=== PATIENT | male | born 1965 | race Caucasian/White ===

== ENCOUNTER 2016-05-03 08:51 | Emergency (ER) | payer OTHER ==
[~2016-05-03] VITALS: Ht 185.4 cm; Wt 79.5 kg
[2016-05-03 08:53] VITALS: TEMP 98
[2016-05-03] MEDS ORDERED: HUMALOG100 U/ML SQ (09:00)
[2016-05-03] MEDS ORDERED: LEVEMIR FLEX100 U/ML SQ (09:00)
[2016-05-03] MEDS ORDERED: PRINIVIL10 MG PO (09:00)
[2016-05-03 09:30] LABS: BASO # 0.1 (0.0-0.2); BASO % 1.2 % (0.0-2.0); EOS % 0.2 % (0-4.0); GRAN # 3.2 (1.4-6.5); GRAN % 74.8 % (42.2-75.2); LYMPH # 0.4 (1.2-3.4); LYMPH % 8.2 % (20.0-51.0); MEAN CELL VOLUME 99 fl (80.0-100.0); MEAN CORPUSCULAR HGB CONC 35 g/dl (33.0-37.0); MEAN PLATELET VOLUME 9.4 fl (7.4-10.4); MONO # 0.6 (0.1-0.6); MONO % 14.9 % (1.7-9.3); PLATELET COUNT 114 K/mm3 (130-400); RED BLOOD COUNT 3.46 M/mm3 (4.20-5.60); REDCELL DISTRIBUTION WIDTH-CV 12.8 % (11.5-14.5); WHITE BLOOD COUNT 4.3 K/mm3 (4.8-10.8)
[2016-05-03 09:32] LABS: HEMATOCRIT 34.2 % (42.0-52.0); HEMOGLOBIN 11.9 g/dl (13.5-18.0); MEAN CORPUSCULAR HEMOGLOBIN 34 pg (27.0-31.0)
[2016-05-03 09:37] LABS: ADJUSTED CALCIUM 8.9 mg/dL (8.4-10.2); ALANINE AMINOTRANSFERASE 124 U/L (21-72); ALBUMIN 4.3 gm/dL (3.5-5.0); ALKALINE PHOSPHATASE 107 U/L (50-136); ANION GAP 17 mmol/L (7-16); BILIRUBIN,TOTAL 2.4 mg/dL (0.0-1.0); BLOOD UREA NITROGEN 11 mg/dL (9-20); CALCIUM 9.1 mg/dL (8.4-10.2); CARBON DIOXIDE 26 mmol/L (22-30); CHLORIDE 94 mmol/L (98-107); GLUCOSE 187 mg/dL (74-106); MAGNESIUM 1.9 mg/dL (1.6-2.3); PHOSPHOROUS 2.9 mg/dL (2.5-4.5); POTASSIUM 3.5 mmol/L (3.4-5.0); SODIUM 137 mmol/L (137-145); TOTAL PROTEIN 7.4 gm/dL (6.4-8.2)
[2016-05-03] MEDS ORDERED: VALIUM 5MG T5 MG/TAB PO (13:31)
[2016-05-03 14:01] VITALS: BP 168/88; PULSE 108
== END 2016-05-03 13:51 | disposition home or self-care (01) ==
LOC: COL.ER 08:51
PROVIDERS: Emergency Medicine
DX: E10.649 Type 1 diabetes mellitus with hypoglycemia without coma (principal); Z79.4 Long term (current) use of insulin; R55 Syncope and collapse; R00.0 Tachycardia, unspecified; R79.89 Other specified abnormal findings of blood chemistry
CPT/HCPCS: J7030

== ENCOUNTER 2016-11-04 13:39 | Emergency (ER) | payer OTHER ==
[~2016-11-04] VITALS: Ht 177.8 cm; Wt 68.2 kg
[~2016-11-04 13:39] MED LIST: HUMALOG100 U/ML SQ; LEVEMIR FLEX100 U/ML SQ; PRINIVIL10 MG PO; VALIUM 5MG T5 MG/TAB PO
[2016-11-04 14:04] LABS: BASO % 0.1 % (0.0-2.0); GRAN # 6.8 (1.4-6.5); GRAN % 80.6 % (42.2-75.2); HEMATOCRIT 38.9 % (42.0-52.0); HEMOGLOBIN 12.1 g/dl (13.5-18.0); LYMPH # 0.3 (1.2-3.4); MEAN CELL VOLUME 112 fl (80.0-100.0); MEAN CORPUSCULAR HEMOGLOBIN 35 pg (27.0-31.0); MEAN CORPUSCULAR HGB CONC 31 g/dl (33.0-37.0); MEAN PLATELET VOLUME 10.3 fl (7.4-10.4); MONO # 1.2 (0.1-0.6); MONO % 14.7 % (1.7-9.3); PLATELET COUNT 137 K/mm3 (130-400); RED BLOOD COUNT 3.46 M/mm3 (4.20-5.60); REDCELL DISTRIBUTION WIDTH-CV 11.6 % (11.5-14.5); WHITE BLOOD COUNT 8.5 K/mm3 (4.8-10.8)
[2016-11-04 14:06] LABS: INR 1.1 (0.8-3.0)
[2016-11-04 14:07] VITALS: TEMP 98.3
[2016-11-04 14:09] LABS: PARTIAL THROMBOPLASTIN TIME 25.8 SECONDS (26.0-37.0)
[2016-11-04 14:18] LABS: ADJUSTED CALCIUM 9.4 mg/dL (8.4-10.2); ALANINE AMINOTRANSFERASE 69 U/L (21-72); ALBUMIN 4.3 gm/dL (3.5-5.0); ALKALINE PHOSPHATASE 113 U/L (50-136); BLOOD UREA NITROGEN 39 mg/dL (9-20); CALCIUM 9.6 mg/dL (8.4-10.2); CHLORIDE 92 mmol/L (98-107); CREATININE, serum 2.97 mg/dL (0.66-1.25); GLUCOSE 341 mg/dL (74-106); SODIUM 129 mmol/L (137-145); TOTAL PROTEIN 6.8 gm/dL (6.4-8.2)
[2016-11-04 14:29] LABS: TROPONIN-I 0.015 ng/mL (0.000-0.034)
[2016-11-04 14:43] LABS: ARTERIAL BLD GAS TCO2 CT 2.8; ARTERIAL BLOOD GAS BASE EXCESS -28.9 (-2-2); ARTERIAL BLOOD GAS HCO3 2.4 meq/L (22-26); OXYHEMOGLOBIN 97.8 %
[2016-11-04 14:50] VITALS: BP 87/46; PULSE 100
[2016-11-04 14:52] LABS: ATS? YES
[2016-11-04 15:05] LABS: POTASSIUM 5.8 mmol/L (3.4-5.0)
[2016-11-04 15:06] LABS: CARBON DIOXIDE < 5 mmol/L (22-30)
== END 2016-11-04 15:15 | disposition short-term general hospital (02) ==
LOC: COL.ER 13:39
PROVIDERS: Emergency Medicine
DX: R40.20 Unspecified coma (principal); E87.2 Acidosis; E11.9 Type 2 diabetes mellitus without complications; Z79.4 Long term (current) use of insulin
CPT/HCPCS: J0330; J2250; J7030

== ENCOUNTER 2016-12-13 10:30 | Outpatient (RCR) | payer OTHER | END 2017-01-08 08:16 | LOC: MKS.ESL.PT 10:30 | DX: E13.11 Other specified diabetes mellitus with ketoacidosis with coma (principal) ==

== ENCOUNTER 2017-01-04 11:03 | Outpatient (RCR) | payer SELFPAY | END 2017-04-04 | disposition home or self-care (01) | LOC: MKS.ESL.PT | DX: E13.11 Other specified diabetes mellitus with ketoacidosis with coma (principal) ==

== ENCOUNTER 2018-01-20 17:45 | Emergency (ER) | payer BC ==
[~2018-01-20] VITALS: Ht 182.9 cm; Wt 81.8 kg
[2018-01-20 17:52] VITALS: TEMP 98.7
[2018-01-20 19:00] LABS: BASO # 0.1 (0.0-0.2); BASO % 1.5 % (0.0-2.0); EOS # 0.1 (0.0-0.7); GRAN # 2.9 (1.4-6.5); GRAN % 47.1 % (42.2-75.2); HEMATOCRIT 40.3 % (42.0-52.0); LYMPH # 2.6 (1.2-3.4); LYMPH % 41.8 % (20.0-51.0); MEAN CELL VOLUME 102 fl (80.0-100.0); MEAN CORPUSCULAR HEMOGLOBIN 35 pg (27.0-31.0); MEAN CORPUSCULAR HGB CONC 35 g/dl (33.0-37.0); MEAN PLATELET VOLUME 9.3 fl (7.4-10.4); MONO # 0.5 (0.1-0.6); MONO % 8.3 % (1.7-9.3); PLATELET COUNT 410 K/mm3 (130-400); RED BLOOD COUNT 3.97 M/mm3 (4.20-5.60); REDCELL DISTRIBUTION WIDTH-CV 10.9 % (11.5-14.5)
[2018-01-20 19:09] LABS: ALBUMIN 3.9 gm/dL (3.5-5.0); BILIRUBIN,TOTAL 0.7 mg/dL (0.0-1.0); CALCIUM 8.8 mg/dL (8.4-10.2); CREATININE, serum 0.61 mg/dL (0.66-1.25); MAGNESIUM 1.7 mg/dL (1.6-2.3); PHOSPHOROUS 4.5 mg/dL (2.5-4.5); POTASSIUM 4.4 mmol/L (3.4-5.0); TOTAL PROTEIN 6.9 gm/dL (6.4-8.2)
[2018-01-20 21:03] LABS: COLLECTION METHOD CLEAN CATCH
[2018-01-20 21:09] LABS: MUCOUS Present /lpf; PH 5 (5-8); SQUAMOUS EPITHELIAL None Seen /hpf; URINE APPEARANCE Clear; URINE BACTERIA None Seen /hpf; URINE BILIRUBIN Negative (NEGATIVE); URINE BLOOD Negative (NEGATIVE); URINE COLOR Yellow; URINE GLUCOSE Negative (NEGATIVE); URINE KETONE Negative (NEGATIVE); URINE LEUKOCYTE ESTERASE Negative (NEGATIVE); URINE NITRATE Negative (NEGATIVE); URINE PROTEIN(semi-quant) Negative (NEGATIVE); URINE RBC 0-2 /hpf; URINE UROBILINOGEN Negative (NEGATIVE)
[2018-01-20 21:17] LABS: TRICYCLIC ANTIDEPRESS URINE NEGATIVE
[2018-01-21 09:25] VITALS: BP 157/97; PULSE 110
== END 2018-01-21 09:25 | disposition home or self-care (01) ==
LOC: COL.ER 17:45
PROVIDERS: Emergency Medicine
DX: F10.129 Alcohol abuse with intoxication, unspecified (principal); S05.12XA Contusion of eyeball and orbital tissues, left eye, initial encounter; E11.9 Type 2 diabetes mellitus without complications; I10 Essential (primary) hypertension; F17.210 Nicotine dependence, cigarettes, uncomplicated; Z79.4 Long term (current) use of insulin; Y04.0XXA Assault by unarmed brawl or fight, initial encounter; Y90.8 Blood alcohol level of 240 mg/100 ml or more
CPT/HCPCS: J3411; J7030

== ENCOUNTER → 2018-03-17 | Outpatient (CLI) | payer BC | LOC: COL.RAD 09:37 | DX: Z02.71 Encounter for disability determination (principal); M47.816 Spondylosis without myelopathy or radiculopathy, lumbar region; M41.86 Other forms of scoliosis, lumbar region ==

== ENCOUNTER 2018-08-27 08:05 | Observation (INO) | payer BC ==
[~2018-08-27] VITALS: Ht 185.4 cm; Wt 70.8 kg
[2018-08-27 08:42] LABS: BASO % 0.9 % (0.0-2.0); EOS % 0.9 % (0-4.0); GRAN # 2.5 (1.4-6.5); GRAN % 72.9 % (42.2-75.2); HEMOGLOBIN 12.5 g/dl (13.5-18.0); LYMPH # 0.5 (1.2-3.4); LYMPH % 15.7 % (20.0-51.0); MEAN CELL VOLUME 95 fl (80.0-100.0); MEAN CORPUSCULAR HEMOGLOBIN 32 pg (27.0-31.0); MEAN CORPUSCULAR HGB CONC 34 g/dl (33.0-37.0); MEAN PLATELET VOLUME 8.9 fl (7.4-10.4); MONO # 0.3 (0.1-0.6); MONO % 9.3 % (1.7-9.3); PLATELET COUNT 147 K/mm3 (130-400); RED BLOOD COUNT 3.89 M/mm3 (4.20-5.60); REDCELL DISTRIBUTION WIDTH-CV 13.9 % (11.5-14.5)
[2018-08-27 08:47] LABS: PROTHROMBIN TIME 11.2 SECONDS (9.7-12.8)
[2018-08-27 08:50] LABS: PARTIAL THROMBOPLASTIN TIME 31.3 SECONDS (26.0-37.0)
[2018-08-27 08:59] LABS: ALANINE AMINOTRANSFERASE 80 U/L (21-72); ALBUMIN 4.3 gm/dL (3.5-5.0); ALKALINE PHOSPHATASE 170 U/L (50-136); ANION GAP 17 mmol/L (7-16); AST,SGOT 131 U/L (15-37); BILIRUBIN,TOTAL 1.2 mg/dL (0.0-1.0); BLOOD UREA NITROGEN 11 mg/dL (9-20); CALCIUM 9.2 mg/dL (8.4-10.2); CARBON DIOXIDE 24 mmol/L (22-30); CHLORIDE 93 mmol/L (98-107); GLUCOSE 193 mg/dL (74-106); MAGNESIUM 1.7 mg/dL (1.6-2.3); PHOSPHOROUS 3.8 mg/dL (2.5-4.5); POTASSIUM 4.1 mmol/L (3.4-5.0); SODIUM 135 mmol/L (137-145); TOTAL PROTEIN 7.4 gm/dL (6.4-8.2)
[2018-08-27 09:00] LABS: ALCOHOL(ethanol),MEDICAL < 10 mg/dL
[2018-08-27 09:08] LABS: TROPONIN-I < 0.012 ng/mL (0.000-0.035)
[2018-08-27 09:13] LABS: PROLACTIN 76.4 ng/mL (3.7-17.9)
--- NOTE | 2018-08-27 10:59 | NUR ---
RECEIVED REPORT FROM ED NURSE.
[2018-08-27 11:56] LABS: COLLECTION METHOD CLEAN CATCH
[2018-08-27 12:02] LABS: PH 7 (5-8); SQUAMOUS EPITHELIAL None Seen /hpf; URINE APPEARANCE Clear; URINE BACTERIA None Seen /hpf; URINE BILIRUBIN Negative (NEGATIVE); URINE BLOOD Negative (NEGATIVE); URINE COLOR Yellow; URINE GLUCOSE 2+ (NEGATIVE); URINE KETONE Trace (NEGATIVE); URINE LEUKOCYTE ESTERASE Negative (NEGATIVE); URINE NITRATE Negative (NEGATIVE); URINE PROTEIN(semi-quant) Negative (NEGATIVE); URINE RBC 0-2 /hpf; URINE UROBILINOGEN Negative (NEGATIVE)
--- NOTE | 2018-08-27 12:07 | NUR ---
pt arrived to room 306.oriented to room.awake,banana bag infusing.no other needs voiced at this time.call light in reach
[2018-08-27] MEDS ORDERED: PRINIVIL10 MG PO (12:11)
[2018-08-27] MEDS ORDERED: TRESIBA FL100 UNIT/1 SQ (12:13)
[2018-08-27 12:19] VITALS: BP 148/79; PULSE 79; TEMP 98.3
[2018-08-27 13:47] LABS: TRICYCLIC ANTIDEPRESS URINE NEGATIVE
--- NOTE | 2018-08-27 14:46 | NUR ---
Assessment complete.patient awake,a/ox3.denies pain or discomfort at this time.breathing and unlabored.LSCTA.rubber stamp die inspector equal.bowel sounds audible [id number].pt has not had any seizures on the floor.VSS.pt on seizure precautions.CIWA protocol started.patient not scoring at this time.will continue to monitor.call light in reach
--- NOTE | 2018-08-27 14:53 | NUR ---
pt taken to MRI at this time.Blood sugar stable at this time.
--- NOTE | 2018-08-27 14:54 | NUR ---
pt has had food and tolerated well.denies Nausea and vomitting.INT intact.flushes well.no concerns voiced at this time.
--- NOTE | 2018-08-27 15:00 | NUR ---
pt returned to room from MRI.
[2018-08-27 16:57] VITALS: BP 142/82; PULSE 76; TEMP 98.6
--- NOTE | 2018-08-27 18:09 | NUR ---
PT REPORTS 2 EPISODES OF VOMITTING.PRN ZOFRAN GIVEN.
[2018-08-27 18:12] VITALS: BP 143/72; PULSE 89; TEMP 98.8
[2018-08-27 19:17] VITALS: BP 135/81; PULSE 83; TEMP 98.6
--- NOTE | 2018-08-27 19:25 | NUR ---
REPORT GIVEN TO NOÉ DYSON.
--- NOTE | 2018-08-27 20:44 | NUR ---
Resting in bed. Assessment complete. Lungs clear. Heart sounds normal. Bowels active x4. Pulses strong throughout. No edema noted. Denies pain. Blood sugar 66. Provided with juice. Denies other needs at this time. Call light in reach.
[2018-08-27 21:45] VITALS: BP 134/81; PULSE 93; TEMP 99
[2018-08-27 23:38] VITALS: BP 132/79; PULSE 87; TEMP 98.9
--- NOTE | 2018-08-27 23:38 | NUR ---
Resting in bed. Denies needs. Call light in reach.
[2018-08-27 23:44] LABS: FOLATE (FOLIC ACID) 13.1 ng/mL (7.0-31.4)
[2018-08-28 02:04] VITALS: BP 136/80; PULSE 92; TEMP 98.6
[2018-08-28 04:14] VITALS: BP 133/79; PULSE 91; TEMP 97.7
--- NOTE | 2018-08-28 04:29 | NUR ---
Resting in bed. Call light in reach.
[2018-08-28 06:00] VITALS: BP 138/84; PULSE 87; TEMP 97.8
[2018-08-28 06:30] LABS: BASO % 0.5 % (0.0-2.0); EOS % 0.7 % (0-4.0); GRAN # 3.6 (1.4-6.5); GRAN % 64.3 % (42.2-75.2); HEMATOCRIT 38.2 % (42.0-52.0); HEMOGLOBIN 12.7 g/dl (13.5-18.0); LYMPH # 1.2 (1.2-3.4); LYMPH % 21.5 % (20.0-51.0); MEAN CELL VOLUME 96 fl (80.0-100.0); MEAN CORPUSCULAR HEMOGLOBIN 32 pg (27.0-31.0); MEAN CORPUSCULAR HGB CONC 33 g/dl (33.0-37.0); MONO # 0.7 (0.1-0.6); MONO % 12.8 % (1.7-9.3); PLATELET COUNT 127 K/mm3 (130-400); RED BLOOD COUNT 3.99 M/mm3 (4.20-5.60); REDCELL DISTRIBUTION WIDTH-CV 13.6 % (11.5-14.5)
[2018-08-28 06:35] LABS: ALBUMIN 4.1 gm/dL (3.5-5.0); BILIRUBIN,TOTAL 1.9 mg/dL (0.0-1.0); CREATININE, serum 0.62 (0.66-1.25); POTASSIUM 5.1 mmol/L (3.4-5.0); TOTAL PROTEIN 7.3 gm/dL (6.4-8.2)
--- NOTE | 2018-08-28 06:45 | NUR ---
Patient had uneventful night. Resting in bed this AM. Report given to NOÉ Mckinley
[2018-08-28 08:26] VITALS: BP 144/80; PULSE 90; TEMP 98.7
--- NOTE | 2018-08-28 09:51 | NUR ---
SW met with the patient and patient's mother, Karina, to discuss discharge plan. The patient lives in [place] with his mother. He reports independence with ADLs and has a cane and walker. The patient does not have a PCP and he was not interested in being set up with one. He states that he does have a Special Event Assistant in [place], Valerie Heaton APRN, for his diabetes. He receives his medications at the [facility] in [facility] and he reports that he is going to have difficulties affording his meds. SW discussed prescription assistance through [place], [place], and through [facility]Note 2] or through a PCP. The patient verbalized understanding. The patient does not have advanced directives and he was not interested in completing them at this time. He did inform ALONA that he is still , but that they have been seperated. SW discussed the importance of completing one. He was still not interested in completing one or obtaining a form for DPOA-HC. The patient plans to return home with his mother upon discharge. No additional needs at this time.
[2018-08-28] MEDS ORDERED: KEPPRA 500MG500 MG PO (09:54)
[2018-08-28 10:13] VITALS: BP 130/80; PULSE 95; TEMP 98.5
--- NOTE | 2018-08-28 10:48 | NUR ---
Initial visit; Patient states he is Agnostic though would like prayer. Traffic Recorder prayed with Buzz, offering blessings and a prayer for his recovery.
--- NOTE | 2018-08-28 12:23 | NUR ---
THIS NURSE SAW PATIENT WALKING DOWN THE VIVEROS WITH CONTAINER OF HIS STUFF, NO IV SITE ANYMORE. I WENT AND CHECKED PT ROOM, SAW IV CATH AND TELE BOX ON LAYING IN ROOM. THIS NURSE WENT TO SEE IF PATIENT WAS STILL ON PROPERTY, PT SITTING OUT FRONT WAITING FOR HIS RIDE. THIS NURSE ASKED PT IF HE WAS LEAVING, PT STATED "YES, IM LEAVING I AM DONE WAITING AROUND." THIS NURSE ASKED PT IF HE WOULD AT LEAST COME IN AND SIGN PAPERS TO DISCHARGE HIM. PT STATED THAT YES HE WOULD, THAT WOULD BE FINE. THIS NURSE ESCORTED PT UP TO THIRD FLOOR. I TALKED TO DR PLAZA ABOUT PT SITUATION. DR PLAZA STATED TO GO AHEAD AND SHE'D DISCHARGE PT THEN THE PT COULD DO HIS EEG OUT PATIENT. DISCHARGE PAPERS WHERE SIGNED AND EDUCATION WAS PROVIDED.
== END 2018-08-28 15:03 | disposition home or self-care (01) ==
LOC: COL.ER 08:05 → MEDICAL 10:32
PROVIDERS: Emergency Medicine; Physician Assistant; ADMIT Family Medicine
DX: R56.9 Unspecified convulsions (principal); E11.649 Type 2 diabetes mellitus with hypoglycemia without coma; Z79.4 Long term (current) use of insulin; I10 Essential (primary) hypertension; E87.5 Hyperkalemia; D69.6 Thrombocytopenia, unspecified; D64.9 Anemia, unspecified; D72.819 Decreased white blood cell count, unspecified; F17.210 Nicotine dependence, cigarettes, uncomplicated; Z80.9 Family history of malignant neoplasm, unspecified
CPT/HCPCS: 99222-AI; G0378; J1650; J1815; J2405; J3475; J7030

== ENCOUNTER 2018-09-11 06:51 | Emergency (ER) | payer BC ==
[~2018-09-11] VITALS: Ht 185.4 cm; Wt 71.8 kg
[~2018-09-11 06:51] MED LIST changes: +KEPPRA 500MG500 MG PO; +TRESIBA FL100 UNIT/1 SQ
[2018-09-11 06:53] VITALS: TEMP 98.1
[2018-09-11 09:33] VITALS: BP 115/77; PULSE 95
--- NOTE | 2018-09-11 10:00 | NUR ---
ALONA met with the patient and Karina, the pt's mother. Pt's mother was concerned for the well-being of her son and wanted him to go to [place] for mental health counseling. SW inquired about DPOA information, the pt's does not have a DPOA. The pt is medically cleared to leave the ED. SW provided resources for the patient. There are no additional needs at this time.
== END 2018-09-11 09:58 | disposition home or self-care (01) ==
LOC: COL.ER 06:51
DX: E10.649 Type 1 diabetes mellitus with hypoglycemia without coma (principal); F17.210 Nicotine dependence, cigarettes, uncomplicated

== ENCOUNTER 2018-09-18 09:15 | Observation (INO) | payer BC ==
[~2018-09-18] VITALS: Ht 185.4 cm; Wt 67.9 kg
[2018-09-18 10:46] LABS: BASO % 1.9 % (0.0-2.0); GRAN # 1.3 (1.4-6.5); GRAN % 61.4 % (42.2-75.2); HEMATOCRIT 39.5 % (42.0-52.0); LYMPH # 0.5 (1.2-3.4); LYMPH % 24.2 % (20.0-51.0); MEAN CELL VOLUME 93 fl (80.0-100.0); MEAN CORPUSCULAR HEMOGLOBIN 33 pg (27.0-31.0); MEAN CORPUSCULAR HGB CONC 35 g/dl (33.0-37.0); MEAN PLATELET VOLUME 9.4 fl (7.4-10.4); MONO # 0.3 (0.1-0.6); MONO % 11.6 % (1.7-9.3); PLATELET COUNT 78 K/mm3 (130-400); RED BLOOD COUNT 4.23 M/mm3 (4.20-5.60); REDCELL DISTRIBUTION WIDTH-CV 15.4 % (11.5-14.5)
--- NOTE | 2018-09-18 10:55 | NUR ---
SW was called ED nurse to speak with patient about community resources. Patient was previously seen by ALONA last week in the ED. Patient lives with his mother, currently, but he is looking for his own apartment. Patient reports he does not have a job due to being laid off from his previous job. Patient will lose his health insurance at the end of this month because he got . Patient is seen by an Metal Extrusion Supervisor, Valerie Heaton APRN, every three months for his diabetes. Patient does not have a PCP but was given resources for low cost/free clinics in [place]. SW informed patient that the [facility] and the [facility] have resource to help pay for medications/insulin. SW also reported a PCP can refer patient to diabetes education. SW encouraged patient to schedule an appointment with a PCP. Patient was given a community resource packet. Patient does not have any further questions or concerns. SW reported back to nurse.
[2018-09-18 10:58] LABS: CALCIUM 8.5 mg/dL (8.4-10.2); CREATININE, serum 0.5 (0.66-1.25); POTASSIUM 4.2 mmol/L (3.4-5.0)
[2018-09-18 11:10] LABS: ALBUMIN 4.4 gm/dL (3.5-5.0); BILIRUBIN,TOTAL 0.5 mg/dL (0.0-1.0)
[2018-09-18 11:24] LABS: TOTAL PROTEIN 8.1 gm/dL (6.4-8.2)
[2018-09-18 13:05] LABS: MAGNESIUM 2.2 mg/dL (1.6-2.3)
[2018-09-18] MEDS ORDERED: NATURE'S BLEND100 M2 PO (14:41)
--- NOTE | 2018-09-18 20:00 | NUR ---
Patient arrived to medical floor room 358 from ED at approximately 1900. Patient assessed at this time. Denies having pain and discomfort. Peripheral IV to left hand. NS running at 125 ml/hr per orders. Site is without redness, warmth, swelling, and pain. Denies having SOB and dyspnea. LS CTA. Respirations even and unlabored. HRR. BSAx4. Abdomen soft and non-tender. No edema. Voices no questions, needs or concerns at this time. UA sample obtained and taken to lab. Bed in lowest position. Bed alarm is on. Call light is within reach.
[2018-09-18 20:05] VITALS: BP 150/79; PULSE 86; TEMP 97.9
[2018-09-18 20:07] VITALS: BP 150/79; PULSE 84; TEMP 97.9
[2018-09-18 21:22] LABS: COLLECTION METHOD CLEAN CATCH
[2018-09-18 21:29] LABS: MUCOUS Present /lpf; PH 6 (5-8); SQUAMOUS EPITHELIAL None Seen /hpf; URINE APPEARANCE Clear; URINE BACTERIA None Seen /hpf; URINE BILIRUBIN Negative (NEGATIVE); URINE BLOOD Negative (NEGATIVE); URINE COLOR Yellow; URINE GLUCOSE 3+ (NEGATIVE); URINE KETONE Trace (NEGATIVE); URINE LEUKOCYTE ESTERASE Negative (NEGATIVE); URINE NITRATE Negative (NEGATIVE); URINE PROTEIN(semi-quant) Negative (NEGATIVE); URINE RBC 0-2 /hpf; URINE UROBILINOGEN Negative (NEGATIVE)
[2018-09-18 21:30] LABS: INR 0.9 (0.8-3.0); PROTHROMBIN TIME 10.6 SECONDS (9.7-12.8)
[2018-09-18 21:33] LABS: PARTIAL THROMBOPLASTIN TIME 33.1 SECONDS (26.0-37.0)
[2018-09-18 21:54] LABS: TRICYCLIC ANTIDEPRESS URINE NEGATIVE
[2018-09-18 22:39] VITALS: BP 153/83; PULSE 95; TEMP 98.2
--- NOTE | 2018-09-18 23:45 | NUR ---
Patient's IV to left hand came out. New one started to left forearm. Patient scoring 9 on detox protocol at this time. Given PRN Ativan IV. Patient had emesis and was given PRN Maalox as well. Voices no questions, needs, or concerns at this time. Call light is within reach. Bed in lowest position. Bed alarm on.
[2018-09-18 23:46] VITALS: BP 152/83; PULSE 81; TEMP 98.2
[2018-09-19] VITALS (11 sets, daily range): BP systolic 104–161; BP diastolic 66–89; PULSE 77–108; TEMP 97.5–98.9
--- NOTE | 2018-09-19 04:51 | NUR ---
Patient received 0.5 mg Ativan per detox protocol. Patient denies having pain and discomfort. Denies having any needs or concerns. No further emesis, and denies nausea. Encouraged oral intake, but declines. Has been able to drink fluids. Continues to have tremors. NS continues to run at 125 ml/hr to peripheral IV site to left forearm. Call light is within reach.
--- NOTE | 2018-09-19 06:44 | NUR ---
Report given to day shift nurse.
[2018-09-19 07:18] LABS: BASO % 0.7 % (0.0-2.0); EOS % 1.4 % (0-4.0); GRAN # 1.8 (1.4-6.5); GRAN % 62.3 % (42.2-75.2); LYMPH # 0.7 (1.2-3.4); LYMPH % 25.1 % (20.0-51.0); MEAN CORPUSCULAR HGB CONC 33 g/dl (33.0-37.0); MEAN PLATELET VOLUME 9.8 fl (7.4-10.4); MONO # 0.3 (0.1-0.6); MONO % 10.5 % (1.7-9.3); PLATELET COUNT 53 K/mm3 (130-400); RED BLOOD COUNT 3.53 M/mm3 (4.20-5.60); REDCELL DISTRIBUTION WIDTH-CV 15.3 % (11.5-14.5)
[2018-09-19 07:32] LABS: ALBUMIN 3.8 gm/dL (3.5-5.0); CALCIUM 8.9 mg/dL (8.4-10.2); CREATININE, serum 0.41 (0.66-1.25); HEMATOCRIT 34.5 % (42.0-52.0); HEMOGLOBIN 11.4 g/dl (13.5-18.0); MEAN CELL VOLUME 98 fl (80.0-100.0); MEAN CORPUSCULAR HEMOGLOBIN 32 pg (27.0-31.0); POTASSIUM 4.1 mmol/L (3.4-5.0)
--- NOTE | 2018-09-19 12:20 | NUR ---
Pt lying in bed, termors have subisded. Pt eyes closed, awakens to verbal stimuli. IV to LF was pulled out accidentally earlier, Arlen UMANZOR inserted a 20g to RF. No redness or swelling noted. Pt ordered food, call light in reach. Denies any needs at this time.
--- NOTE | 2018-09-19 14:47 | NUR ---
Pt lying in bed, he ate half of his food tray. Denies any nausea or pain. Some tremors noted. No diaphoresis noted, blood pressure and heart rate all within normal limits.
--- NOTE | 2018-09-19 16:07 | NUR ---
SW attended clinical rounds to discuss discharge planning. Patient lives at home with his mother. Patient does not have a PCP and he obtains medications from [facility] pharmacy. Patient has a walker at home but no other DME is reported. Patient does not have a DPOA-HC or home health services. Doctor spoke with patient about patient's alcohol intake. Patient reports he only drinks 1/2 pint per day. Patient's mother reports that patient has been drinking heavily since he lost his job. Patient's mother voiced concerns about caring for patient at home. Doctor explained that patient's alcohol consumption is a concern and also enouraged patient to stop drinking alcohol completly. Patient does not believe he has a problem and does not think he needs to quit. Patient reports"drinking makes me happy." Patient denies being depressed and does not want any mental health help. Patient reports "I do not believe in psychiatrists." SW followed up with patient after rounds. Patient was seen by SW in the ED yesterday (09/18 see social service director notes). Patient is willing to review alcohol treatment packet. SW provided. SW also encouraged patient to utilize the [facility] Resource packet that was provided yesterday in the ED and also enouraged patient to obtain a PCP. SW provided low income clinic options in the ED as well. Patient was seen by PT/OT. At this time, patient is not safe to return home. SW will continue to follow to ensure safe discharge.
--- NOTE | 2018-09-19 17:11 | NUR ---
Pt moved to rm 11 as he was getting up without calling. Pt alert and oriented x4. Denies any pain, tremors are mild at this time. Vital signs stable. Denies any needs at this time.
--- NOTE | 2018-09-19 18:27 | NUR ---
Pt was incontinent of urine, cleaned and changed. Also helped to bathroom, very unstead on feet. Will continue to monitor. Call light in reach.
--- NOTE | 2018-09-19 18:52 | NUR ---
Hand off report given to Suzanna UMANZOR.
--- NOTE | 2018-09-19 20:30 | NUR ---
Patient assessed at this time. Denies having pain and discomfort. Denies having any nausea or upset stomach. Has been tolerating oral intake today. NS running at 125 ml/hr to peripheral IV site to right forearm. Site is without redness, warmth, swelling, and pain. Has not been calling for assistance. High fall risk. Bed in lowest position. Bed alarm on. Call light and belongings within reach. Yellow gown and non-skid socks. Urinal within reach, but reported that he has been incontinent today. No incontince at this time. Denies SOB and dyspnea. LS CTA. Respirations even and unlabored. Tachycardia, regular rhythm. BSAx4. Abdomen soft and non-tender. No edema. Scabs to BLE. No drainage. Gait very unsteady. Has walker in room. Tremors noted as well. Given PRN Ativan 1 mg per detox protocol. Voices no questions, needs, or concerns at this time. Call light is within reach.
--- NOTE | 2018-09-19 22:46 | NUR ---
Resting in bed with eyes closed at this time. Call light is within reach.
[2018-09-20] VITALS (8 sets, daily range): BP systolic 116–150; BP diastolic 73–97; PULSE 83–100; TEMP 97.3–98.5
--- NOTE | 2018-09-20 01:00 | NUR ---
Patient's bed alarm sounded. Attempting to get up to go to the bathroom independently. Two staff members ambulated with patient to bathroom with gait belt and walker. Gait unsteady. Patient was incontinent of urine. Bed linens and hospital gown changed. Refused to take off t-shirt. Naomie care provided, and new brief put on patient. Assisted back to bed as requested. Voices no questions, needs, or concerns at this time. Resting in bed watching TV. Dozes on and off easily so far this shift. Bed in lowest position. Call light is within reach.
[2018-09-20 06:11] LABS: BASO % 0.9 % (0.0-2.0); EOS # 0.1 (0.0-0.7); EOS % 2.7 % (0-4.0); GRAN # 1.9 (1.4-6.5); GRAN % 57.7 % (42.2-75.2); HEMOGLOBIN 10.6 g/dl (13.5-18.0); LYMPH # 0.9 (1.2-3.4); LYMPH % 27.1 % (20.0-51.0); MEAN CELL VOLUME 98 fl (80.0-100.0); MEAN CORPUSCULAR HEMOGLOBIN 33 pg (27.0-31.0); MEAN CORPUSCULAR HGB CONC 33 g/dl (33.0-37.0); MEAN PLATELET VOLUME 10.5 fl (7.4-10.4); MONO # 0.4 (0.1-0.6); MONO % 11.3 % (1.7-9.3); PLATELET COUNT 61 K/mm3 (130-400); RED BLOOD COUNT 3.24 M/mm3 (4.20-5.60); REDCELL DISTRIBUTION WIDTH-CV 14.5 % (11.5-14.5)
[2018-09-20 06:21] LABS: ALBUMIN 3.6 gm/dL (3.5-5.0); BILIRUBIN,TOTAL 1.9 mg/dL (0.0-1.0); CALCIUM 8.9 mg/dL (8.4-10.2); CREATININE, serum 0.44 (0.66-1.25); MAGNESIUM 1.8 mg/dL (1.6-2.3); POTASSIUM 4.6 mmol/L (3.4-5.0); TOTAL PROTEIN 6.6 gm/dL (6.4-8.2)
--- NOTE | 2018-09-20 06:22 | NUR ---
Patient continues to be incontinent of urine. Staff assists with changing. States that he does not realize when he is incontinent. Hand coordination and gait continue to be unsteady. Using walker in room with assistance, but still needs lots of cueing to use walker appropriately, turn, sit, etc. Denies having pain and discomfort. NS continues to run at 125 ml/hr to right forearm. Resting in bed watching TV at this time. Call light is within reach.
[2018-09-20 06:44] LABS: HEMATOCRIT 31.8 % (42.0-52.0)
--- NOTE | 2018-09-20 10:00 | NUR ---
Pt assessment completed and charted. Pt is alert and calm. Per pt he is "pissed and ready to go home". Pt scoring 2 on detox scale. Denies pain, chest pain, SOB, N/V. Denies having much of an appetite, did eat some applesauce. Patient has BUE bruising and scabs, no open sores. INT RFA IV fluids infusing at 125 ml/hr with no complications. Pt on room air. Denies other needs at this time other than "wanting to go home". Call light within reach, mother at bedside.
--- NOTE | 2018-09-20 11:14 | NUR ---
ALONA attended clinical rounds. The hospitalist discussed therapies recommendation of post-acute rehab. The patient reports that he just wants to go home. He states that he can manage at home by just crawling around. The hospitalist discussed how that is unsafe and the options of IPR or SNF. The patient then reported that he would be agreeable to rehab. SW then followed up with the patient. The patient reports that he does not want to do inpatient rehab. He states that he wants to do outpatient therapy and that he would transport him. ALONA then updated the hospitalist. SW to continue to follow.
--- NOTE | 2018-09-20 11:30 | NUR ---
Patient IV fluids DC'd, RFA IV INT. Discussed w/ hospitalist about IPR and physical therapy/rehab. pt denies having a drinking problem. States he "wants to go home, I will be fine there". pt is very unsteady on feet, requires at least 2 assist with walker and patient is still very unsteady and shaky. When asked how pt will get around at home when discharged, "I will crawl". Pt states he will be fine when he gets home and get around on his own.
--- NOTE | 2018-09-20 15:00 | NUR ---
bev Crawley and Caroline with SW informed this nurse that patient was ready to go home AMA and was refusing IPR and physical therapy. This nurse discussed [facility] patient the risks of leaving with his condition and being unsteady on his feet. Per pt "I will be fine when I get home". Discussed w/ Pt the benefits of physical therapy and regaining strength. per Pt "I will go to [facility] or something outpatient. I don't want to be here." pt stated he would have his "mom or an uber" come pick him up. This nurse called KIRILL hopkins and Dr. Cho to inform them of Pt's request to leave AMA. Pt signed AMA papers. This nurse informed patient once again on the risks and benefits of leaving. RFA INT IV was discontinued, catheter tip intact, no complications. Patient called mom and is awaiting for transport.
--- NOTE | 2018-09-20 15:36 | NUR ---
The patient is wanting to leave Against Medical Advice. SW made an APS report. Intake ID#[id number]
--- NOTE | 2018-09-20 15:45 | NUR ---
Patient left AMA, papers signed. Patient escorted out via wheelchair by this nurse and bev Crawley. Mom was clearly mad about patients decision to leave AMA. Patient was assisted into car safely with mom.
== END 2018-09-20 15:30 | disposition left against medical advice (07) ==
LOC: COL.ER 09:15 → MEDICAL 17:32 → COL.ER 17:32 → MEDICAL 17:32
PROVIDERS: Emergency Medicine; Nurse Practitioner Family; ADMIT Hospitalist
DX: F10.129 Alcohol abuse with intoxication, unspecified (principal); R27.0 Ataxia, unspecified; R56.9 Unspecified convulsions; R74.0 Nonspecific elevation of levels of transaminase and lactic acid dehydrogenase [LDH]; D69.6 Thrombocytopenia, unspecified; D72.819 Decreased white blood cell count, unspecified; I10 Essential (primary) hypertension; E44.0 Moderate protein-calorie malnutrition; E10.65 Type 1 diabetes mellitus with hyperglycemia; Z79.4 Long term (current) use of insulin; F17.210 Nicotine dependence, cigarettes, uncomplicated; Z82.49 Family history of ischemic heart disease and other diseases of the circulatory system; Z80.9 Family history of malignant neoplasm, unspecified
CPT/HCPCS: 99222-AI; 99239; G0378; J1815; J2060; J3411; J3475; J7030

== ENCOUNTER 2018-09-30 13:18 | Emergency (ER) | payer BC ==
[~2018-09-30] VITALS: Ht 185.4 cm; Wt 69.1 kg
[~2018-09-30 13:18] MED LIST changes: +NATURE'S BLEND100 M2 PO
[2018-09-30 13:23] VITALS: TEMP 97.8
[2018-09-30 15:15] VITALS: BP 135/82; PULSE 93
== END 2018-09-30 15:15 | disposition home or self-care (01) ==
LOC: COL.ER 13:18
DX: S42.201A Unspecified fracture of upper end of right humerus, initial encounter for closed fracture (principal); F10.20 Alcohol dependence, uncomplicated; W01.0XXA Fall on same level from slipping, tripping and stumbling without subsequent striking against object, initial encounter
CPT/HCPCS: Q4021

== ENCOUNTER → 2019-01-06 | Outpatient (CLI) | payer SELFPAY ==
[2019-01-06 11:52] LABS: HEMATOCRIT 39.5 % (42.0-52.0); HEMOGLOBIN 12.9 g/dl (13.5-18.0); MEAN CELL VOLUME 94 fl (80.0-100.0); MEAN CORPUSCULAR HEMOGLOBIN 31 pg (27.0-31.0); MEAN CORPUSCULAR HGB CONC 33 g/dl (33.0-37.0); MEAN PLATELET VOLUME 9.2 fl (7.4-10.4); PLATELET COUNT 275 K/mm3 (130-400); RED BLOOD COUNT 4.19 M/mm3 (4.20-5.60); REDCELL DISTRIBUTION WIDTH-CV 13.4 % (11.5-14.5)
[2019-01-06 12:09] LABS: ALBUMIN 4.8 gm/dL (3.5-5.0); BILIRUBIN,TOTAL 0.6 mg/dL (0.0-1.0); C-REACTIVE PROTEIN 0.6 mg/dL (0.0-0.9); CALCIUM 9.8 mg/dL (8.4-10.2); CREATININE, serum 0.63 (0.66-1.25); POTASSIUM 4.3 mmol/L (3.4-5.0); TOTAL PROTEIN 8.2 gm/dL (6.4-8.2)
[2019-01-06 12:11] LABS: ERYTHROCYTE SEDIMENTATION RATE 1 mm/hr (0-30)
== END ==
LOC: COL.LAB 10:30
PROVIDERS: Orthopaedic Surgery
DX: S42.301A Unspecified fracture of shaft of humerus, right arm, initial encounter for closed fracture (principal)

== ENCOUNTER → 2019-01-08 | Outpatient (CLI) | payer SELFPAY | LOC: COL.RAD 09:50 | DX: M84.421A Pathological fracture, right humerus, initial encounter for fracture (principal); E07.9 Disorder of thyroid, unspecified ==

== ENCOUNTER → 2019-05-20 | Emergency (ER) | payer MEDICAID ==
[~2019-05-20] VITALS: Ht 180.3 cm; Wt 63.5 kg
[2019-05-20 09:50] VITALS: TEMP 97.9
[2019-05-20 10:33] LABS: BASO % 0.9 % (0.0-2.0); EOS % 0.5 % (0-4.0); GRAN # 1.2 (1.4-6.5); HEMATOCRIT 38.2 % (42.0-52.0); HEMOGLOBIN 12.5 g/dl (13.5-18.0); LYMPH # 0.7 (1.2-3.4); LYMPH % 31.3 % (20.0-51.0); MEAN CELL VOLUME 102 fl (80.0-100.0); MEAN CORPUSCULAR HEMOGLOBIN 33 pg (27.0-31.0); MEAN CORPUSCULAR HGB CONC 33 g/dl (33.0-37.0); MEAN PLATELET VOLUME 8.7 fl (7.4-10.4); MONO # 0.3 (0.1-0.6); MONO % 13.8 % (1.7-9.3); PLATELET COUNT 199 K/mm3 (130-400); RED BLOOD COUNT 3.76 M/mm3 (4.20-5.60); REDCELL DISTRIBUTION WIDTH-CV 13.6 % (11.5-14.5)
[2019-05-20 10:44] LABS: ALBUMIN 4.3 gm/dL (3.5-5.0); BILIRUBIN,TOTAL 0.4 mg/dL (0.0-1.0); CALCIUM 8.1 mg/dL (8.4-10.2); CREATININE, serum 0.59 (0.66-1.25); MAGNESIUM 2.1 mg/dL (1.6-2.3); POTASSIUM 4.2 mmol/L (3.4-5.0); TOTAL PROTEIN 7.5 gm/dL (6.4-8.2)
--- NOTE | 2019-05-20 13:58 | NUR ---
LUNA carson responded to the ED for a web content & social media manager consult for the patient due to needing a ride home and a 309 blood alcohol level. The patient was brought in by EMS due to being found unresponsive at home. His blood sugar was 36. LUNA carson met with the patient to discuss his alcohol usage. The patient states he drinks "1/5 of Vodka 2 times a week." LUNA acrson asked the patient if medical staff had discussed what the effects of alcohol have on his diabetes. He stated, "yes." LUNA carson asked the patient if he was willing to cut back on his drinking and he does not want to. LUNA carson inquired about a PCP. The patient reports he now has insurance and they recommended a PCP. LUNA carson offered to set-up a follow up appointment and the patient was not interested. The patient reports his insurance is Medicaid[employer] and he got it in February 2019 and it was back dated to October 2018. The patient was agreeable to receiving education on alcohol usage and its effect on his health. LUNA carson also provided [facility] Resource Guide. LUNA carson inquired about a ride home for the patient. LUNA carson obtained permission to contact the patient's mother, Karina to get him home. The patient was agreeable and Karina will pick-up the patient. LUNA carson collaborated the above information with the patient's nurse. LUNA carson contacted Hilda with finance and informed her of the patient's insurance status.
[2019-05-20 15:20] VITALS: BP 143/97; PULSE 93
== END ==
LOC: COL.ER 09:46
PROVIDERS: Emergency Medicine
DX: E10.649 Type 1 diabetes mellitus with hypoglycemia without coma (principal); F17.220 Nicotine dependence, chewing tobacco, uncomplicated; F10.20 Alcohol dependence, uncomplicated; Y90.8 Blood alcohol level of 240 mg/100 ml or more
CPT/HCPCS: J3411; J3475; J7030

== ENCOUNTER 2019-07-11 15:18 | Emergency (ER) | payer MEDICAID ==
[~2019-07-11] VITALS: Ht 185.4 cm; Wt 70.0 kg
[2019-07-11 15:22] VITALS: TEMP 96.8
[2019-07-11 15:45] LABS: BASO # 0.1 (0.0-0.2); BASO % 0.7 % (0.0-2.0); GRAN % 81.3 % (42.2-75.2); HEMATOCRIT 39.3 % (42.0-52.0); HEMOGLOBIN 13.1 g/dl (13.5-18.0); LYMPH # 0.7 (1.2-3.4); LYMPH % 8.7 % (20.0-51.0); MEAN CELL VOLUME 96 fl (80.0-100.0); MEAN CORPUSCULAR HEMOGLOBIN 32 pg (27.0-31.0); MEAN CORPUSCULAR HGB CONC 33 g/dl (33.0-37.0); MEAN PLATELET VOLUME 9.1 fl (7.4-10.4); MONO # 0.7 (0.1-0.6); PLATELET COUNT 170 K/mm3 (130-400); RED BLOOD COUNT 4.11 M/mm3 (4.20-5.60); REDCELL DISTRIBUTION WIDTH-CV 13.8 % (11.5-14.5)
[2019-07-11 15:59] LABS: ALBUMIN 4.9 gm/dL (3.5-5.0); ALKALINE PHOSPHATASE 166 U/L (50-136); ANION GAP 19 mmol/L (7-16); AST,SGOT 67 U/L (15-37); BILIRUBIN,TOTAL 1.1 mg/dL (0.0-1.0); BLOOD UREA NITROGEN 7 mg/dL (9-20); CALCIUM 9.7 mg/dL (8.4-10.2); CARBON DIOXIDE 25 mmol/L (22-30); CHLORIDE 94 mmol/L (98-107); CREATININE, serum 0.51 (0.66-1.25); GLUCOSE 51 mg/dL (74-106); LIPASE 22 U/L (23-300); MAGNESIUM 1.9 mg/dL (1.6-2.3); PHOSPHOROUS 4.5 mg/dL (2.5-4.5); SODIUM 138 mmol/L (137-145); TOTAL PROTEIN 8.4 gm/dL (6.4-8.2)
[2019-07-11 16:02] LABS: ALCOHOL(ethanol),MEDICAL < 10 mg/dL; C-REACTIVE PROTEIN < 0.5 mg/dL (0.0-0.9)
[2019-07-11 16:08] LABS: TROPONIN-I < 0.012 ng/mL (0.000-0.035)
[2019-07-11 16:21] LABS: ALANINE AMINOTRANSFERASE 35 U/L (4-49)
[2019-07-11] MEDS ORDERED: ZOFRAN 4MG T4 MG/TAB PO (16:38)
[2019-07-11 17:47] VITALS: BP 153/92; PULSE 96
== END 2019-07-11 18:15 | disposition home or self-care (01) ==
LOC: COL.ER 15:18
PROVIDERS: Emergency Medicine
DX: E11.649 Type 2 diabetes mellitus with hypoglycemia without coma (principal); F10.10 Alcohol abuse, uncomplicated; I10 Essential (primary) hypertension; I25.10 Atherosclerotic heart disease of native coronary artery without angina pectoris; F17.220 Nicotine dependence, chewing tobacco, uncomplicated; Z79.4 Long term (current) use of insulin; Z95.5 Presence of coronary angioplasty implant and graft; Y90.6 Blood alcohol level of 120-199 mg/100 ml
CPT/HCPCS: J1790; J2405; J7030